=== PATIENT | female | born 1960 | race Two or more races ===

== ENCOUNTER 2017-07-10 17:46 | Emergency (ER) | payer MEDICARE, MEDICAID ==
[2017-07-10 17:58] VITALS: BP 195/74
[2017-07-10] MEDS ORDERED: HYDROmorphone 1 MG/ML Syringe IM ONE (18:13)
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
== END 2017-07-10 18:59 | disposition home or self-care (01) ==
LOC: JP.ED 17:46
DX: T23.262A Burn of second degree of back of left hand, initial encounter (principal); F17.210 Nicotine dependence, cigarettes, uncomplicated; Z79.82 Long term (current) use of aspirin; Z79.899 Other long term (current) drug therapy; X12.XXXA Contact with other hot fluids, initial encounter
CPT/HCPCS: 96372; 99283; J1170

== ENCOUNTER 2020-10-13 15:09 | Emergency (ER) | payer MEDICARE ==
[2020-10-13 15:17] VITALS: BP 137/77; PULSE 63
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
[2020-10-13] MEDS ORDERED: Ketorolac 30 MG/ML SDV IVPUSH ONE (16:08)
[2020-10-13] MEDS ORDERED: Ketorolac 30 MG/ML SDV ONE (16:09)
--- NOTE | 2020-10-13 16:20 | CRLCT ---
INDICATION: Seizure. COMPARISON: None. TECHNIQUE: CT of the head without IV contrast. Coronal and sagittal reconstructions are provided. FINDINGS: No intracranial hemorrhage, mass effect, or evidence of acute infarct. No midline shift. No abnormal extra-axial fluid collections. Normal caliber ventricular system. Physiologic basal ganglia calcifications. Orbits and extraocular muscles are symmetric. The paranasal sinuses and mastoid air cells are clear. No acute fracture. Soft tissues are unremarkable. IMPRESSION: : No acute intracranial findings. Please note that all CT scans at this facility use dose modulation, iterative reconstruction, and/or weight-based dosing when appropriate to reduce radiation dose to as low as reasonably achievable. Dictated by Mago Elizondo MD @ 10/13/2020 4:19:[address] Mago Elizondo @ Oct 13 2020 4:19PM
== END 2020-10-13 18:23 | disposition home or self-care (01) ==
LOC: JP.ED 15:09
DX: R56.9 Unspecified convulsions (principal); N30.00 Acute cystitis without hematuria; Z72.0 Tobacco use
CPT/HCPCS: 36415; 70450; 80053; 80305; 81001; 83690; 83735; 85025; 87086; 96374; 99285; J1885; 99284

== ENCOUNTER 2020-10-18 09:25 | Emergency (ER) | payer MEDICARE ==
[2020-10-18 09:48] VITALS: BP 143/58; PULSE 60
[2020-10-18] MEDS ORDERED: Acetaminophen/oxyCODONE 325-5 MG Tab PO STA (10:04)
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
[2020-10-18] MEDS ORDERED: fentaNYL 12 MCG/HR Transdermal Patch TRDERM SCH (10:45)
--- NOTE | 2020-10-18 10:55 | CR ---
Lumbar Spine 2 or 3V CLINICAL HISTORY: Back pain, recent seizure FINDINGS: There is a moderate compression deformity of L5. Chronology is uncertain. There is some minimal spondylosis. IMPRESSION: Moderate compression deformity of L5 of undetermined chronology
== END 2020-10-18 10:55 | disposition home or self-care (01) ==
LOC: JP.ED 09:25
DX: S32.059A Unspecified fracture of fifth lumbar vertebra, initial encounter for closed fracture (principal); Z72.0 Tobacco use; Z79.899 Other long term (current) drug therapy; X58.XXXA Exposure to other specified factors, initial encounter
CPT/HCPCS: 72100; 99284; A9270

== ENCOUNTER 2022-07-20 15:45 | Emergency (ER) | payer MEDICARE ==
[2022-07-20 16:02] VITALS: BP 138/52; PULSE 78
== END 2022-07-20 16:43 | disposition home or self-care (01) ==
LOC: JP.ED 15:45
DX: K04.7 Periapical abscess without sinus (principal); M19.90 Unspecified osteoarthritis, unspecified site; Z88.0 Allergy status to penicillin; Z72.0 Tobacco use; Z79.82 Long term (current) use of aspirin
CPT/HCPCS: 99282